=== PATIENT | female | born 1970 | race Two or more races ===

== ENCOUNTER 2018-04-14 06:55 | Emergency (ER) | payer OTHER ==
[~2018-04-14] VITALS: Ht 157.5 cm; Wt 66.7 kg
[2018-04-14] MEDS ORDERED: LISINOPRIL10 MG (07:39)
[2018-04-14] MEDS ORDERED: KETO10TA2 PO (12:21)
== END 2018-04-14 12:48 | disposition home or self-care (01) ==
LOC: ER 06:55
DX: S93.491A Sprain of other ligament of right ankle, initial encounter (principal); X50.0XXA Overexertion from strenuous movement or load, initial encounter; Y93.01 Activity, walking, marching and hiking; Y92.018 Other place in single-family (private) house as the place of occurrence of the external cause; Y99.8 Other external cause status

== ENCOUNTER → 2020-07-14 | Outpatient (CLI) | payer OTHER ==
[~2020-07-14] MED LIST: KETO10TA2 PO; LISINOPRIL10 MG
== END | disposition home or self-care (01) ==
LOC: SONOGRAMA 08:19
PROVIDERS: ATTEND Pathology Anatomic Pathology & Clinical Pathology
DX: E04.2 Nontoxic multinodular goiter (principal)

== ENCOUNTER 2024-01-16 08:41 | Outpatient (CLI) | payer OTHER | END 2024-01-16 08:44 | disposition home or self-care (01) | LOC: SONOGRAMA 08:41 | PROVIDERS: ATTEND Pathology Anatomic Pathology & Clinical Pathology | DX: D34 Benign neoplasm of thyroid gland (principal); E07.89 Other specified disorders of thyroid; E04.2 Nontoxic multinodular goiter ==